=== PATIENT | male | born 1945 ===

== ENCOUNTER 2025-04-04 16:46 | Inpatient (IN) | payer OTHER ==
[2025-04-04 17:23] LABS: Actual Bicarbonate (HCO3v) 26.2 mEq/L (22-28); Analyzer IN Cardio CS ER; Base Excess 1.5 mEq/L (-2 - +2); Calcium, Ionized (venous) 1.11 mmol/L (1.16-1.32); Chloride (VBG) 102 mmol/L (98-106); Critical Notified Whom: COCJEF; Hematocrit-VBG 25 % (42.0-52.0); Hemoglobin (Hb) 8.4 g/dL (12.6-17.4); Potassium (VBG) 3.61 mmol/L (3.70-5.30); Puncture Site Other Site; RapidComm Collect By LAB; Sodium 139 mmol/L (133-146)
[2025-04-04 17:36] LABS: #Basophils 0.04 10x3/uL (0.0-0.2); #Eosinophils 0.17 10x3/uL (0.0-0.5); #Monocytes 0.78 10x3/uL (0.0-1.1); #Neutrophils 4.61 10x3/uL (1.5-8.4); %Basophils 0.6 % (0.0-2.0); %Eosinophils 2.4 % (0.0-6.0); %Lymphocytes 20.2 % (18.0-47.0); %Monocytes 11.1 % (0.0-10.0); %Neutrophils 65.4 % (40.0-75.0); Hematocrit 25.1 % (38.8-50.0); Hemoglobin 7.4 g/dL (13.5-17.5); Mean Corpuscular Hemoglobin 21.8 pg (27.0-33.0); Mean Corpuscular Volume 73.8 fL (81.2-95.1); Platelet Count 515 10x3/uL (150-450); Red Blood Cell (RBC) Count 3.40 10x6/uL (4.32-5.72); White Blood Cell (WBC) Count 7.04 10x3/uL (3.5-10.5)
[2025-04-04] MEDS ORDERED: Azithromycin 250 MG TAB ONE (17:37)
[2025-04-04] MEDS ORDERED: cefTRIAXone (ROCEPHIN) 1 GM VIAL ONE (17:37)
[2025-04-04 17:50] LABS: ALT (SGPT) 12 U/L (Less than 45); AST (SGOT) 15 U/L (11-34); Albumin 3.7 g/dL (3.1-4.5); Alkaline Phosphatase 61 U/L (40-110); Anion Gap 18 mmol/L (10-20); BUN (Urea Nitrogen) 19 mg/dL (8.4-25.7); Bilirubin, Total 0.5 mg/dL (0.3-1.2); Calc. Creatinine Clearance 0 mL/min (70-130); Calcium 8.6 mg/dL (7.8-10.44); Carbon Dioxide 23 mmol/L (23-31); Chloride 105 mmol/L (98-107); Globulin 3.6 g/dL (2.4-3.5); Glucose 116 mg/dL (83-110); Potassium 3.8 mmol/L (3.5-5.1); Sodium 142 mmol/L (136-145)
[2025-04-04 17:52] LABS: Troponin I 0.013 ng/mL (< 0.028)
[2025-04-04] MEDS ORDERED: Acetaminophen 325 MG TAB PO PRN (18:15)
[2025-04-04 20:29] VITALS: BMI 36.0
[2025-04-04] MEDS: Pantoprazole 40 MG VIAL IVP SCH (21:06)
[2025-04-04 22:14] LABS: Hematocrit 21.5 % (38.8-50.0); Hemoglobin 6.4 g/dL (13.5-17.5)
[2025-04-04 22:15] LABS: Iron 17 ug/dL (65-175); Iron Binding Capacity, Total 375 mcg/dL (261-462)
[2025-04-04 22:26] LABS: Magnesium 2.2 mg/dL (1.6-2.6)
[2025-04-05] MEDS: Furosemide 40 MG (4 mL) VIAL SLOW IVP SCH ×2 (00:07→07:58)
[2025-04-05] MEDS: Lisinopril 20 MG TAB PO SCH (08:00)
[2025-04-05] MEDS: Pantoprazole 40 MG VIAL IVP SCH (08:01)
[2025-04-05 08:11] LABS: Hematocrit 24.5 % (38.8-50.0); Hemoglobin 7.4 g/dL (13.5-17.5)
[2025-04-05 08:57] LABS: ALT (SGPT) 13 U/L (Less than 45); AST (SGOT) 16 U/L (11-34); Albumin 3.3 g/dL (3.1-4.5); Alkaline Phosphatase 50 U/L (40-110); Anion Gap 17 mmol/L (10-20); BUN (Urea Nitrogen) 19 mg/dL (8.4-25.7); Bilirubin, Total 0.5 mg/dL (0.3-1.2); Calc. Creatinine Clearance 74 mL/min (70-130); Calcium 8.3 mg/dL (7.8-10.44); Carbon Dioxide 21 mmol/L (23-31); Chloride 104 mmol/L (98-107); Globulin 3.7 g/dL (2.4-3.5); Glucose 147 mg/dL (83-110); Potassium 3.4 mmol/L (3.5-5.1); Sodium 139 mmol/L (136-145)
[2025-04-05 09:46] LABS: Hematocrit 26.8 % (38.8-50.0); Hemoglobin 8.1 g/dL (13.5-17.5)
[2025-04-05 16:25] LABS: Hematocrit 26.3 % (38.8-50.0); Hemoglobin 8.0 g/dL (13.5-17.5)
[2025-04-05] MEDS: Azithromycin 500 MG in Sodium Chloride 0.9% 250 ML 250 ML IVPB SCH (17:41)
[2025-04-05] MEDS: cefTRIAXone\\ROCEPHIN 2 GM in Sodium Chloride 0.9% 100 ML IVPB SCH (17:42)
[2025-04-05] MEDS: GoLYTELY 4,000 ml Bottle PO SCH (19:57)
[2025-04-05 22:18] LABS: Hematocrit 28.1 % (38.8-50.0); Hemoglobin 8.5 g/dL (13.5-17.5)
[2025-04-06 04:29] LABS: #Basophils 0.07 10x3/uL (0.0-0.2); #Eosinophils 0.52 10x3/uL (0.0-0.5); #Monocytes 0.97 10x3/uL (0.0-1.1); #Neutrophils 6.10 10x3/uL (1.5-8.4); %Basophils 0.8 % (0.0-2.0); %Eosinophils 5.6 % (0.0-6.0); %Lymphocytes 17.4 % (18.0-47.0); %Monocytes 10.4 % (0.0-10.0); %Neutrophils 65.5 % (40.0-75.0); Anion Gap 15 mmol/L (10-20); BUN (Urea Nitrogen) 16 mg/dL (8.4-25.7); Calc. Creatinine Clearance 80 mL/min (70-130); Calcium 8.9 mg/dL (7.8-10.44); Carbon Dioxide 27 mmol/L (23-31); Chloride 103 mmol/L (98-107); Glucose 119 mg/dL (83-110); Hematocrit 27.4 % (38.8-50.0); Hemoglobin 8.3 g/dL (13.5-17.5); Mean Corpuscular Hemoglobin 22.5 pg (27.0-33.0); Mean Corpuscular Volume 74.3 fL (81.2-95.1); Platelet Count 513 10x3/uL (150-450); Potassium 3.6 mmol/L (3.5-5.1); Red Blood Cell (RBC) Count 3.69 10x6/uL (4.32-5.72); Sodium 141 mmol/L (136-145); White Blood Cell (WBC) Count 9.31 10x3/uL (3.5-10.5)
[2025-04-06] MEDS ORDERED: Iopamidol 300 61% 100 ML VIAL FS ONE (11:40)
[2025-04-06] MEDS ORDERED: PROPOFOL 20 ML ONE (14:06)
[2025-04-06] MEDS ORDERED: PHENYLEPHRINE-NS 100 MCG/ML 10 ML SYRINGE ONE (14:08)
[2025-04-06] MEDS ORDERED: PROPOFOL 60 ML ONE (14:44)
[2025-04-06] MEDS ORDERED: Lidocaine 2% MPF 10 ML AMP (For Epidural Use) ONE (14:44)
[2025-04-07 04:41] LABS: #Basophils 0.04 10x3/uL (0.0-0.2); #Eosinophils 0.32 10x3/uL (0.0-0.5); #Monocytes 0.67 10x3/uL (0.0-1.1); #Neutrophils 5.34 10x3/uL (1.5-8.4); %Basophils 0.5 % (0.0-2.0); %Eosinophils 4.3 % (0.0-6.0); %Lymphocytes 14.0 % (18.0-47.0); %Monocytes 9.0 % (0.0-10.0); %Neutrophils 71.9 % (40.0-75.0); Hematocrit 25.6 % (38.8-50.0); Hemoglobin 7.5 g/dL (13.5-17.5); Mean Corpuscular Hemoglobin 22.0 pg (27.0-33.0); Mean Corpuscular Volume 75.1 fL (81.2-95.1); Platelet Count 434 10x3/uL (150-450); Red Blood Cell (RBC) Count 3.41 10x6/uL (4.32-5.72); White Blood Cell (WBC) Count 7.43 10x3/uL (3.5-10.5)
[2025-04-07 04:55] LABS: Anion Gap 13 mmol/L (10-20); BUN (Urea Nitrogen) 10 mg/dL (8.4-25.7); Calc. Creatinine Clearance 88 mL/min (70-130); Calcium 8.4 mg/dL (7.8-10.44); Carbon Dioxide 26 mmol/L (23-31); Chloride 106 mmol/L (98-107); Glucose 123 mg/dL (83-110); Potassium 3.6 mmol/L (3.5-5.1); Sodium 141 mmol/L (136-145)
[2025-04-07] MEDS: Atenolol 25 MG TAB PO SCH (08:57)
[2025-04-07] MEDS: Furosemide 40 MG (4 mL) VIAL SLOW IVP SCH (11:01)
[2025-04-08 04:19] LABS: #Basophils 0.04 10x3/uL (0.0-0.2); #Eosinophils 0.39 10x3/uL (0.0-0.5); #Monocytes 0.87 10x3/uL (0.0-1.1); #Neutrophils 7.39 10x3/uL (1.5-8.4); %Basophils 0.4 % (0.0-2.0); %Eosinophils 4.0 % (0.0-6.0); %Lymphocytes 11.1 % (18.0-47.0); %Monocytes 8.9 % (0.0-10.0); %Neutrophils 75.3 % (40.0-75.0); Hematocrit 25.5 % (38.8-50.0); Hemoglobin 7.7 g/dL (13.5-17.5); Mean Corpuscular Hemoglobin 22.6 pg (27.0-33.0); Mean Corpuscular Volume 74.8 fL (81.2-95.1); Platelet Count 473 10x3/uL (150-450); Red Blood Cell (RBC) Count 3.41 10x6/uL (4.32-5.72); White Blood Cell (WBC) Count 9.81 10x3/uL (3.5-10.5)
[2025-04-08 04:32] LABS: Anion Gap 13 mmol/L (10-20); BUN (Urea Nitrogen) 15 mg/dL (8.4-25.7); Calc. Creatinine Clearance 74 mL/min (70-130); Calcium 8.8 mg/dL (7.8-10.44); Carbon Dioxide 25 mmol/L (23-31); Chloride 105 mmol/L (98-107); Glucose 119 mg/dL (83-110); Potassium 3.7 mmol/L (3.5-5.1); Sodium 139 mmol/L (136-145)
[2025-04-08] MEDS: cefTRIAXone\\ROCEPHIN 2 GM in Sodium Chloride 0.9% 100 ML IVPB SCH (13:18)
[2025-04-08] MEDS: Azithromycin 250 MG TAB PO SCH (13:19)
[2025-04-08] MEDS: Furosemide 40 MG (4 mL) VIAL SLOW IVP SCH ×2 (13:19→19:02)
[2025-04-08] MEDS: Sodium Ferric Gluconate 250 MG in Sodium Chloride 0.9% 250 ML 250 ML IVPB SCH ×2 (18:25→19:21)
[2025-04-09 04:20] LABS: #Basophils 0.03 10x3/uL (0.0-0.2); #Eosinophils 0.21 10x3/uL (0.0-0.5); #Monocytes 0.87 10x3/uL (0.0-1.1); #Neutrophils 7.02 10x3/uL (1.5-8.4); %Basophils 0.3 % (0.0-2.0); %Eosinophils 2.3 % (0.0-6.0); %Lymphocytes 9.8 % (18.0-47.0); %Monocytes 9.6 % (0.0-10.0); %Neutrophils 77.7 % (40.0-75.0); Hematocrit 29.8 % (38.8-50.0); Hemoglobin 8.9 g/dL (13.5-17.5); Mean Corpuscular Hemoglobin 22.6 pg (27.0-33.0); Mean Corpuscular Volume 75.8 fL (81.2-95.1); Platelet Count 421 10x3/uL (150-450); Red Blood Cell (RBC) Count 3.93 10x6/uL (4.32-5.72); White Blood Cell (WBC) Count 9.05 10x3/uL (3.5-10.5)
[2025-04-09 04:32] LABS: Anion Gap 14 mmol/L (10-20); BUN (Urea Nitrogen) 15 mg/dL (8.4-25.7); Calc. Creatinine Clearance 80 mL/min (70-130); Calcium 8.9 mg/dL (7.8-10.44); Carbon Dioxide 27 mmol/L (23-31); Chloride 103 mmol/L (98-107); Glucose 129 mg/dL (83-110); Potassium 3.8 mmol/L (3.5-5.1); Sodium 140 mmol/L (136-145)
[2025-04-09] MEDS: Ferrous Gluconate 324 MG TAB PO SCH (09:39)
[2025-04-09] MEDS: Furosemide 40 MG (4 mL) VIAL SLOW IVP SCH ×2 (12:06→16:55)
[2025-04-09] MEDS: Sodium Ferric Gluconate 250 MG in Sodium Chloride 0.9% 250 ML 250 ML IVPB SCH (21:14)
[2025-04-10 05:15] LABS: #Basophils 0.05 10x3/uL (0.0-0.2); #Eosinophils 0.60 10x3/uL (0.0-0.5); #Monocytes 0.84 10x3/uL (0.0-1.1); #Neutrophils 4.82 10x3/uL (1.5-8.4); %Basophils 0.7 % (0.0-2.0); %Eosinophils 8.2 % (0.0-6.0); %Lymphocytes 13.9 % (18.0-47.0); %Monocytes 11.4 % (0.0-10.0); %Neutrophils 65.4 % (40.0-75.0); Hematocrit 28.5 % (38.8-50.0); Hemoglobin 8.5 g/dL (13.5-17.5); Mean Corpuscular Hemoglobin 22.6 pg (27.0-33.0); Mean Corpuscular Volume 75.8 fL (81.2-95.1); Platelet Count 398 10x3/uL (150-450); Red Blood Cell (RBC) Count 3.76 10x6/uL (4.32-5.72); White Blood Cell (WBC) Count 7.36 10x3/uL (3.5-10.5)
[2025-04-10 05:33] LABS: Anion Gap 11 mmol/L (10-20); BUN (Urea Nitrogen) 16 mg/dL (8.4-25.7); Calc. Creatinine Clearance 81 mL/min (70-130); Calcium 8.5 mg/dL (7.8-10.44); Carbon Dioxide 28 mmol/L (23-31); Chloride 104 mmol/L (98-107); Glucose 108 mg/dL (83-110); Potassium 3.3 mmol/L (3.5-5.1); Sodium 140 mmol/L (136-145)
[2025-04-10 08:58] VITALS: BP 122/57; TEMP 97.9
[2025-04-10] MEDS: Azithromycin 250 MG TAB PO SCH (11:48)
== END 2025-04-10 12:42 | disposition home or self-care (01) | DRG 374 ==
LOC: SUATTDRO 16:46 → CSHERS 16:46 → CSHTELE 17:59
PROVIDERS: ADMIT Family Medicine; ATTEND Hospitalist
PROC: 3E03329 Introduction of Other Anti-infective into Peripheral Vein, Percutaneous Approach (ICD-10-PCS; 2025-04-04)
PROC: 30233N1 Transfusion of Nonautologous Red Blood Cells into Peripheral Vein, Percutaneous Approach (ICD-10-PCS; 2025-04-04)
PROC: 0DB98ZX Excision of Duodenum, Via Natural or Artificial Opening Endoscopic, Diagnostic (ICD-10-PCS; principal; 2025-04-06)
PROC: 0DBN8ZX Excision of Sigmoid Colon, Via Natural or Artificial Opening Endoscopic, Diagnostic (ICD-10-PCS; 2025-04-06)
PROC: 0DB68ZX Excision of Stomach, Via Natural or Artificial Opening Endoscopic, Diagnostic (ICD-10-PCS; 2025-04-06)
PROC: 0DBL8ZX Excision of Transverse Colon, Via Natural or Artificial Opening Endoscopic, Diagnostic (ICD-10-PCS; 2025-04-06)
PROC: 0DBK8ZX Excision of Ascending Colon, Via Natural or Artificial Opening Endoscopic, Diagnostic (ICD-10-PCS; 2025-04-06)
DX: C18.7 Malignant neoplasm of sigmoid colon (principal); I50.33 Acute on chronic diastolic (congestive) heart failure; K57.93 Diverticulitis of intestine, part unspecified, without perforation or abscess with bleeding; J18.9 Pneumonia, unspecified organism; J96.01 Acute respiratory failure with hypoxia; C77.2 Secondary and unspecified malignant neoplasm of intra-abdominal lymph nodes; C78.5 Secondary malignant neoplasm of large intestine and rectum; I48.91 Unspecified atrial fibrillation; D64.9 Anemia, unspecified; Z79.01 Long term (current) use of anticoagulants; Z98.890 Other specified postprocedural states; I48.0 Paroxysmal atrial fibrillation; I44.7 Left bundle-branch block, unspecified; I11.0 Hypertensive heart disease with heart failure; K64.8 Other hemorrhoids; Z79.82 Long term (current) use of aspirin; Z79.899 Other long term (current) drug therapy
CPT/HCPCS: 36415; 36430; 71045; 71260; 74177; 80048; 80053; 82274; 82378; 82728; 82805; 83540; 83550; 83605; 83735; 83880; 84145; 84484; 85014; 85018; 85025; 86850; 86900; 86901; 87040; 87428; 88305; 88341; 88342; 93005; 93010; 93306; 94640; 94760; 94762; 96365; A4215; J0456; J0696; J1940; J2470; J2704; J2916; J7030; J7050; J7620; P9016; Q9967

== ENCOUNTER 2025-07-10 08:37 | Outpatient (CLI) | payer OTHER ==
[2025-07-10 09:20] LABS: Hematocrit 32.4 % (38.8-50.0); Hemoglobin 9.9 g/dL (13.5-17.5); Mean Corpuscular Hemoglobin 25.1 pg (27.0-33.0); Mean Corpuscular Volume 82.2 fL (81.2-95.1); Platelet Count 381 10x3/uL (150-450); Red Blood Cell (RBC) Count 3.94 10x6/uL (4.32-5.72); White Blood Cell (WBC) Count 5.51 10x3/uL (3.5-10.5)
[2025-07-10 09:47] LABS: Anion Gap 15 mmol/L (10-20); BUN (Urea Nitrogen) 23 mg/dL (8.4-25.7); Calc. Creatinine Clearance 0 mL/min (70-130); Calcium 8.9 mg/dL (7.8-10.44); Carbon Dioxide 25 mmol/L (23-31); Chloride 106 mmol/L (98-107); Glucose 117 mg/dL (83-110); Potassium 3.4 mmol/L (3.5-5.1); Sodium 143 mmol/L (136-145)
== END 2025-07-10 08:38 | disposition home or self-care (01) ==
LOC: CSHLAB 08:37
PROVIDERS: ATTEND Surgery
DX: Z01.812 Encounter for preprocedural laboratory examination (principal); C18.7 Malignant neoplasm of sigmoid colon
CPT/HCPCS: 80048; 85027

== ENCOUNTER 2025-07-17 11:57 | Day surgery (SDC) | payer OTHER ==
[2025-07-10 09:02] VITALS: BMI 36.0
[2025-07-17] MEDS ORDERED: Bupivacaine/Epinephrine 0.25% 30 ML VIAL ONE (12:41)
[2025-07-17] MEDS ORDERED: PROPOFOL 20 ML ONE ×2 (13:33→15:32)
[2025-07-17] MEDS ORDERED: Lidocaine 2% MPF 10 ML AMP (For Epidural Use) ONE (13:33)
[2025-07-17] MEDS ORDERED: CEFAZOLIN 2 GM VIAL ONE (14:28)
[2025-07-17] MEDS ORDERED: SUCCINYLCHOLINE/SOD CL,ISO/PF 200 MG/10 ML SYRINGE FS ONE (14:39)
[2025-07-17] MEDS ORDERED: Albuterol HFA (OR) 200 PUFF INH ONE (15:55)
[2025-07-17] MEDS ORDERED: HYDROcodone/Acetaminophen 5/325 mg Tablet ONE ×2 (16:47→16:49)
== END 2025-07-17 17:34 | disposition home or self-care (01) ==
LOC: CSHSDC 11:57
PROVIDERS: ATTEND Surgery
PROC: 0JHD0WZ Insertion of Totally Implantable Vascular Access Device into Right Upper Arm Subcutaneous Tissue and Fascia, Open Approach (ICD-10-PCS; principal; 2025-07-17)
DX: C18.7 Malignant neoplasm of sigmoid colon (principal); I10 Essential (primary) hypertension; I48.19 Other persistent atrial fibrillation; Z90.49 Acquired absence of other specified parts of digestive tract; Z79.82 Long term (current) use of aspirin; Z79.899 Other long term (current) drug therapy
CPT/HCPCS: 36561; 71045; J1642; J2704; C1788; J2250; J3010